=== PATIENT | female | born 1985 | race African-American/Black ===

== ENCOUNTER 2020-05-21 07:57 | Emergency (ER) | payer MEDICAID ==
[~2020-05-21] VITALS: Ht 177.8 cm; Wt 150.0 kg
[2020-05-21 07:58] VITALS: TEMP 98.8
[2020-05-21] MEDS ORDERED: PREDNISONE20 MG PO (09:26)
[2020-05-21 09:37] VITALS: BP 102/75; PULSE 76
== END 2020-05-21 09:37 | disposition home or self-care (01) ==
LOC: COL.ER 07:57
DX: K12.2 Cellulitis and abscess of mouth (principal)
CPT/HCPCS: J0171; J1100; J1200

== ENCOUNTER 2020-06-02 08:34 | Emergency (ER) | payer MEDICAID ==
[~2020-06-02] VITALS: Ht 177.8 cm; Wt 154.5 kg
[~2020-06-02 08:34] MED LIST: PREDNISONE20 MG PO
[2020-06-02 08:35] VITALS: TEMP 98.5
[2020-06-02] MEDS ORDERED: PREDNISONE20 MG PO (09:07)
[2020-06-02 09:45] VITALS: BP 110/83; PULSE 80
--- NOTE | 2020-06-02 14:26 | NUR ---
The patient's RN contacted [facility] to inform that the patient has been discharged from the ED, but needs a ride home. The RN states that the patient has two children and that she does not have anyone that can take her home. One of the children also need a carseat. The patient was brought in by EMS. [facility] then met with the patient in the ED waiting room. The patient states that she is a teacher of gifted students at [employer] and does not have any family that live around here or friends that could bring her home. The patient states that she has a carseat for her child, but no one to pick it up and bring it here for a taxi ride home. [facility] contacted [facility]. Salo with [facility] arrived to the hospital. Salo states that he would be able to go pick up driver the carseat from the patient's home and bring it back up here for the patient's child to have for the taxi ride home. Salo informed the patient of this and she was agreeable to do this. Salo delivered the carseat to the patient. [facility] contacted [facility] and provided the patient with a taxi voucher back home.
== END 2020-06-02 09:40 | disposition home or self-care (01) ==
LOC: COL.ER 08:34
DX: J39.2 Other diseases of pharynx (principal); Z79.52 Long term (current) use of systemic steroids
CPT/HCPCS: J7512

== ENCOUNTER → 2020-07-04 | Outpatient (CLI) | payer MEDICAID | LOC: COL.RAD 10:28 | DX: R20.2 Paresthesia of skin (principal) ==

== ENCOUNTER 2020-09-22 17:41 | Emergency (ER) | payer MEDICAID ==
[~2020-09-22] VITALS: Ht 180.3 cm; Wt 154.5 kg
[2020-09-22 17:57] VITALS: TEMP 98.2
[2020-09-22 18:15] LABS: COLLECTION METHOD CLEAN CATCH
[2020-09-22 18:20] LABS: MUCOUS Present /lpf; PH 6 (5-8); SQUAMOUS EPITHELIAL None Seen /hpf; URINE APPEARANCE Clear; URINE BACTERIA None Seen /hpf; URINE BILIRUBIN Negative (NEGATIVE); URINE BLOOD Negative (NEGATIVE); URINE COLOR Yellow; URINE GLUCOSE Negative (NEGATIVE); URINE KETONE Negative (NEGATIVE); URINE LEUKOCYTE ESTERASE Negative (NEGATIVE); URINE NITRATE Negative (NEGATIVE); URINE PROTEIN(semi-quant) Negative (NEGATIVE); URINE RBC 0-2 /hpf; URINE UROBILINOGEN Negative (NEGATIVE)
[2020-09-22] MEDS ORDERED: B-12 500 MCG (18:30)
[2020-09-22] MEDS ORDERED: VITAMINC1000TA (18:30)
[2020-09-22] MEDS ORDERED: D3-5050000 IU (18:31)
[2020-09-22 18:36] LABS: BASO % 0.3 % (0.0-2.0); EOS # 0.1 (0.0-0.7); EOS % 1.4 % (0-4.0); GRAN # 2.6 (1.4-6.5); GRAN % 41.9 % (42.2-75.2); HEMATOCRIT 39.7 % (37.0-47.0); LYMPH # 3.1 (1.2-3.4); LYMPH % 49.1 % (20.0-51.0); MEAN CELL VOLUME 78 fl (80.0-100.0); MEAN CORPUSCULAR HEMOGLOBIN 24 pg (27.0-31.0); MEAN CORPUSCULAR HGB CONC 30 g/dl (33.0-37.0); MEAN PLATELET VOLUME 9.6 fl (7.4-10.4); MONO # 0.4 (0.1-0.6); MONO % 7.1 % (1.7-9.3); PLATELET COUNT 315 K/mm3 (130-400); REDCELL DISTRIBUTION WIDTH-CV 18.1 % (11.5-14.5)
[2020-09-22 18:47] LABS: ALANINE AMINOTRANSFERASE 10 U/L (4-34); ALBUMIN 4.2 gm/dL (3.5-5.0); ALKALINE PHOSPHATASE 71 U/L (50-136); ANION GAP 9 mmol/L (7-16); AST,SGOT 19 U/L (15-37); BILIRUBIN,TOTAL 0.6 mg/dL (0.0-1.0); BLOOD UREA NITROGEN 11 mg/dL (7-17); CALCIUM 9.1 mg/dL (8.4-10.2); CARBON DIOXIDE 26 mmol/L (22-30); CHLORIDE 101 mmol/L (98-107); CREATININE, serum 0.74 (0.52-1.25); GLUCOSE 94 mg/dL (74-106); POTASSIUM 3.9 mmol/L (3.4-5.0); SODIUM 135 mmol/L (137-145); TOTAL PROTEIN 7.8 gm/dL (6.4-8.2)
[2020-09-22 19:04] LABS: TROPONIN-I < 0.012 ng/mL (0.000-0.035)
[2020-09-22 22:00] VITALS: BP 147/87; PULSE 77
== END 2020-09-22 22:00 | disposition home or self-care (01) ==
LOC: COL.ER 17:41
PROVIDERS: Emergency Medicine; Nurse Practitioner Family
DX: R07.89 Other chest pain (principal); F41.9 Anxiety disorder, unspecified; R00.2 Palpitations; R22.42 Localized swelling, mass and lump, left lower limb; R79.1 Abnormal coagulation profile
CPT/HCPCS: J1650; J7030; Q9967